=== PATIENT | female | born 2000 | race Caucasian/White ===

== ENCOUNTER 2023-01-12 14:06 | Emergency (ER) | payer MEDICAID, OTHER ==
[~2023-01-12] VITALS: Ht 165.1 cm; Wt 109.0 kg
[2023-01-12] MEDS ORDERED: ONDANSETRON HCL 4MG/2ML INJ IV STA (15:52)
[2023-01-12] MEDS ORDERED: MORPHINE SULFATE 4 MG/ML CPJ (NOT FOR IM USE) IV STA (15:52)
[2023-01-12] MEDS ORDERED: SODIUM CHLORIDE 0.9% 1,000 ML IV ONE ×2 (16:00→21:45)
[2023-01-12] MEDS ORDERED: DIATR MEGLU/DIATRIZOATE SOLN 30ML PO ONE (16:00)
[2023-01-12 16:08] LABS: EOSINOPHILS % 0.6 % (0.0-5.0); HEMATOCRIT. 44.6 % (36.0-48.0); HEMOGLOBIN. 14.9 g/dL (12.0-16.0); MEAN CORPUSCULAR VOLUME 84.1 fL (81.0-99.0); MEAN PLATELET VOLUME 9.5 fl (7.4-10.4); MONOCYTES % 5.9 % (2.0-8.0); NEUTROPHILS % 69.5 % (40.0-76.0); PLATELET 369 x1000/uL (130-400)
[2023-01-12 16:15] LABS: CHLORIDE 107 mEq/L (98-107)
[2023-01-12 16:18] LABS: CLARITY URINE TURBID (CLEAR); COLOR URINE YELLOW (YELLOW); KETONES URINE 4+ (NEGATIVE); LEUKOCYTE ESTERASE URINE 2+ (NEGATIVE); NITRITE URINE NEGATIVE (NEGATIVE); OCCULT BLOOD URINE 1+ (NEGATIVE); PH URINE 5.5 (4.5-8.0); PROTEIN URINE 1+ (NEGATIVE); SPECIFIC GRAVITY URINE 1.033 (1.005-1.030)
[2023-01-12 16:21] LABS: HCG SCREEN NEGATIVE
[2023-01-12 16:53] LABS: INR 1.4
[2023-01-12] MEDS ORDERED: CEFTRIAXONE 1GM PREMIX 50 ML IV ONE (19:00)
[2023-01-12] MEDS ORDERED: METOCLOPRAMIDE HCL 10MG/2ML VIAL IV ONE (21:45)
[2023-01-13] VITALS: BP 93/64
== END 2023-01-13 01:08 | disposition home or self-care (01) ==
LOC: ER 14:06 → CANBEDREQ 01-13 → ER 01-13 01:08
DX: K85.90 Acute pancreatitis without necrosis or infection, unspecified (principal); Z98.890 Other specified postprocedural states; Z20.822 Contact with and (suspected) exposure to COVID-19
CPT/HCPCS: 36415; 71045; 74177; 80053; 81003; 81025; 83690; 84703; 85025; 85610; 86850; 86900; 86901; 87086; 87426; 93005; 96361; 96365; 96375; 99285; C9803; J0696; J2270; J2405; J2765; J7030; Q9963; Z7610